=== PATIENT | male | born 1935 | race Caucasian/White ===

== ENCOUNTER → 2023-04-13 12:10 | Outpatient (REF) | payer MEDICARE, SELFPAY ==
[2023-04-13 13:34] LABS: Blood Urea Nitrogen 32 mg/dl (9-20)
== END ==
LOC: REG 12:10
PROVIDERS: ATTENDING PHYSICIAN Internal Medicine Gastroenterology; FAMILY PHYSICIAN Family Medicine
DX: K86.81 Exocrine pancreatic insufficiency (principal)
CPT/HCPCS: 36415; 82565; 84520

== ENCOUNTER → 2023-05-05 12:40 | Outpatient (REF) | payer MEDICARE, SELFPAY | LOC: RAD 12:40 | PROVIDERS: ATTENDING PHYSICIAN Internal Medicine Gastroenterology; FAMILY PHYSICIAN Family Medicine | DX: K86.81 Exocrine pancreatic insufficiency (principal) | CPT/HCPCS: 74160; Q9967 ==

== ENCOUNTER 2023-08-12 14:46 | Inpatient (IN) | payer MEDICARE, SELFPAY ==
[2023-08-12] VITALS (9 sets, daily range): BP systolic 96–124; BP diastolic 69–78; PULSE 103; O2SAT 96; BMI 22.4
--- NOTE | 2023-08-12 10:37 | ED.MUSCINJ ---
HPI-Injury
General
Chief Complaint: Fall
Source: patient
Exam Limitations: none
Time Seen by Provider: 08/12/23 10:20
Nursing documentation reviewed up to this point in time: agreed with
History of Present Illness-Injury
Is this injury a work related problem?: No
Is pt an associate of [facility]/[place]?: No
Initial Injury comments:
88-year-old male on Coumadin and has A-fib tripped today while walking fell struck his left hip on the ground no head strike, presents boarded and collared apparently has a laceration to his right forearm, mild pain in his left hip has been able to
ambulate since the fall, no preceding chest pain or shortness of breath
Past History
Past History
ED Past Medical History: Arrthythmia, CHF, CVA and NIDDM
ED Past Surgical History: Cardiac and Orthopedic
Social History
Tobacco: Non-smoker
Alcohol: None
Drug: None
Personal:
Living: with family
Employment: Retired
Family History
Family History: Hypertension
Review of Systems
Review of Systems
All Other Systems: Not applicable
Constitutional: Denies fever
EENT: Reports no symptoms
Respiratory: Reports no symptoms
Cardiac: Reports no symptoms
ABD/GI: Reports no symptoms
Musculoskeletal: Reports joint pain
Neurological: Reports no symptoms
Phy Exam
Physical Exam
Physical Exam:
Physical Exam
General: no apparent distress, not acutely ill
Neck: No tongue bite mild paraspinal tenderness
Heart: Irregular
Lungs: no acute respiratory distress. clear bilaterally
Abdomen: Nontender
Neuro: alert and oriented. no focal neurological deficits
Skin: no rash
Psychiatric: cooperative
Extremities: Mild pain with range of motion of left hip, right forearm--2 cm skin tear on the volar surface
Injury Course
Orders/Labs/Results
Orders:
Orders
08/12/23 10:26
Cardiac Monitoring- Treatment ONCE
Interrogate Pacemaker- Treatment ONCE
Hip, Left 2-3 Views [CR Hip - LT w/wo Pel 2-3 Vw*] Urgent
Comment:
Reason For Exam: fall
Include a pelvis x-ray?: Yes
08/12/23 10:27
Electrocardiogram (*1) Urgent
Reason for Study: Other
Other Reason for Exam: trauma
CT Cervical Spine W/o Iv Contr Urgent
Comment:
Reason For Exam: fall
CT Head W/o Iv Contrast Urgent
Comment:
Reason For Exam: fall
EKG- Treatment ONCE
08/12/23 10:38
Forearm, Right 2 View [CR Forearm - Right 2 View] Urgent
Comment:
Reason For Exam: fa;;
08/12/23 10:40
Type+Screen Urgent
Complete Blood Count/With Diff Urgent
Comprehensive Metabolic Panel Urgent
PT/INR [Prothrombin Time] Urgent
08/12/23 11:49
Physical Therapy Consult [Pt Eval And Treat] Urgent
Activity Level: Out of Bed-Early Mobility
08/12/23 12:25
Case Management Consult ONCE
Case Management Consult: Discharge Planning
08/12/23 12:27
Morphine Sulfate 4 mg IV NOW STA
08/12/23 13:08
Occupational Therapy Consult [Ot Eval And Treat] Urgent
Abnormal Lab Results
08/12/23
10:40
RBC 4.12 L 10^6/uL
(4.70-6.10)
Hgb 12.2 L g/dL
(13.0-18.0)
Hct 38.4 L %
(39.0-52.0)
MCHC 31.8 L g/dL
(33.0-37.0)
RDW 16.3 H %
(11.5-14.5)
MPV 10.9 H fL
(7.4-10.4)
Abs Immat Gran (auto) 0.1 H 10^3/uL
(0-0.05)
Absolute Neuts (auto) 6.6 H 10^3/uL
(1.4-6.5)
Absolute Lymphs (auto) 1.0 L 10^3/uL
(1.2-3.4)
Immature Gran % 1.3 H %
(0-0.5)
Neutrophils % 80.5 H %
(42.2-75.2)
Lymphocytes % 11.7 L %
(20.5-51.1)
PT 34.3 H Sec
(11.4-14.6)
BUN 34 H mg/dl
(9-20)
Glucose 202 H mg/dl
(70-99)
ALT 66 H U/L
(0-50)
08/12/23 10:40
08/12/23 10:40
MDM/Problems Addressed
Differential Diagnosis Includes:
Slip and fall syncope hip fracture hip contusion pelvic fracture soft tissue injury to the right forearm
MDM/Problems Addressed:
Fall
Chronic conditions affecting care: Arrhythmia
Acute Exacerbation and/or Progression of Chronic Illness: Arrhythmia
*Radiology
Radiology exam reviewed: radiology read reviewed
*Pulse Oximetry
Patient hypoxic: no
*EKG
Interpreted by ED Provider?: Yes
Interpretation: abnormal
Comparison EKG: changes noted
Heart Rate: 110
Rate: tachycardiac
Rhythm: a-fib
Ischemia: non-specific ST changes
*Automation Sales Manager Interpretation
Rate: tachycardiac
Interpretation: abnormal
Heart Rate: 110
Rhythm: a-fib
*Critical Care Note
Total Time (30-74mins, 75-104mins- exclusive of procedures): 5
Update Note
Update Note:
dw Metronic
NSVT 2 weeks ago-brief
CT reports noted x-rays noted prosthesis appears intact looks like it was slightly displaced inferior rami fracture on the left
X-ray report confirms pelvic fracture, reviewed with PT they recommended senior living facility message sent to employment case manager
1:10 PM discussed with employment case manager patient may be a candidate for acute rehab but needs an OT consult
Reviewed with employment case manager recommend admission to the hospital
ED Attending Note
-
Portions of this chart may have been created with voice recognition software.� Occasional wrong word or��sound alike� substitutions may have occurred due to the inherent limitations of voice recognition software.
Discharge Plan
Departure
Patient Disposition: Admit
Date of Disposition: 08/12/23
Time of Disposition: 14:13
Admit to: Telemetry
Presentation/result/management discussed w/ accepting MD/DO: Hospitalist
Patient with high blood pressure during this ER visit?: No
Condition: Fair
Discharge Problem:
Closed pelvic fracture
Prescriptions:
No Action
omeprazole 20 MG capsule,delayed release(DR/EC)
20 mg PO DAILY
atorvastatin 10 MG tablet
10 mg PO QPM
tamsulosin 0.4 MG capsule
0.4 mg PO QPM
oxybutynin chloride 5 MG tablet
10 mg PO QPM
finasteride 5 MG tablet
5 mg PO DAILY
multivitamin Tablet
1 tab PO DAILY
carvedilol 6.25 mg tablet
3.125 mg PO BID
warfarin 5 mg tablet
5 mg PO QPM
acetaminophen 325 mg Tablet
650 mg PO Q4HPRN PRN (Reason: mild pain/LANZA/temp> 100.4F) Qty: 0 0RF
furosemide [Lasix] 20 mg Tablet
20 mg PO Q48H
aspirin 81 mg Tablet,Delayed Release (Dr/Ec)
81 mg PO DAILY Qty: 0 0RF
trazodone 50 mg Tablet
50 mg PO HS
lidocaine 4 % adhesive patch,medicated
1 patch topical DAILYPRN PRN (Reason: left back shoulder)
lorazepam 0.5 mg tablet
0.5 mg PO BID@1700,2200
Patient Comments:
12/24/2022: [facility]
loperamide 2 mg Tablet
2 mg PO Q4HPRN PRN (Reason: diarrhea)
metformin 500 mg Tablet Extended Release 24 Hr
500 mg PO BID@0800,1700
cholestyramine (with sugar) [Questran] 4 gram powder in packet
4 g PO BID PRN (Reason: diarrhea) Qty: 20 0RF
Referrals:
Arsenio Smith MD [Family Provider] -
Interventions
Interventions:
*Risk Screen - Suicide Last Done: 08/12/23 10:17
*General Assessment Last Done: 08/12/23 10:17
*Neglect/Abuse Screening Last Done: 08/12/23 10:17
ED- Fall Risk Assessment Last Done: 08/12/23 10:34
*ED COVID-19 Vaccine History Last Done: 08/12/23 10:17
ED-Musculoskeletal Assessment Last Done: 08/12/23 10:34
ED- Neurological Assessment Last Done: 08/12/23 10:34
ED-Skin Assessment Last Done: 08/12/23 10:34
Discharge Date and Time
Print Language: BHUTANESE
[2023-08-12 10:53] LABS: % Basophils 0.2 % (0-2); % Immature Granulocytes 1.3 % (0-0.5); % Lymphocytes 11.7 % (20.5-51.1); % Monocytes 5.3 % (1.7-9.3); % Neutrophils 80.5 % (42.2-75.2); Absolute Eosinophils 0.1 10^3/uL (0-0.7); Absolute Immature Granulocytes 0.1 10^3/uL (0-0.05); Absolute Monocytes 0.4 10^3/uL (0.1-0.6); Absolute Neutrophils 6.6 10^3/uL (1.4-6.5); Hematocrit 38.4 % (39.0-52.0); Hemoglobin 12.2 g/dL (13.0-18.0); Mean Corp Hgb Conc. 31.8 g/dL (33.0-37.0); Mean Corpuscular Hgb 29.6 pg (27.0-31.0); Mean Corpuscular Volume 93.2 fL (80.0-94.0); Mean Platelet Volume 10.9 fL (7.4-10.4); Nucleated Red Blood Cells % 0 % (-); Platelet Count 146 10^3/uL (130-400); Red Blood Cell Count 4.12 10^6/uL (4.70-6.10); Red Cell Dist. Width 16.3 % (11.5-14.5); White Blood Cell Count 8.2 10^3/uL (4.8-10.8)
[2023-08-12 11:01] LABS: PT 34.3 Sec (11.4-14.6)
[2023-08-12 11:11] LABS: ALT (SGPT) 66 U/L (0-50); AST (SGOT) 53 U/L (17-59); Albumin 3.7 g/dl (3.5-5.0); Alkaline Phosphatase 78 U/L (38-126); Blood Urea Nitrogen 34 mg/dl (9-20); Calcium 9.2 mg/dl (8.4-10.2); Carbon Dioxide 28 mmol/L (22-30); Chloride 103 mmol/L (98-107); Estimated Creatinine Clearance 61 ml/min; Glucose 202 mg/dl (70-99); Potassium 4.5 mmol/L (3.5-5.1); Sodium 137 mmol/L (135-145); Total Bilirubin 0.7 mg/dl (0.2-1.3); Total Protein 6.3 g/dl (6.3-8.2); eGFR > 60.00
[2023-08-12] MEDS: MORPHINE SULFATE 4 MG IV (12:33)
--- NOTE | 2023-08-12 13:24 | CM ---
Addendum entered by Tyrell Harrison 08/12/23 15:03:
CM received a phone call from [facility] coordinator Kristen [phone] and she stated they will be able to admit the pt as early as Tuesday and she will follow up with assigned CM on Tuesday.
Addendum entered by Tyrell Harrison 08/12/23 14:49:
Both [facility] and [facility] denied a referral and recommended pt is admitted to inpatient level of care for syncope work out and abnormal labs.
Per OT pt even cannot stand on his feet due to pain.
Per MD pt will be admitted for inpatient level of care.
Both pt and his family are aware and they requested [facility] on [facility]. art director Dipak [phone].
Original Note:
CM following re: discharge planning.
CM consulted to assist the pt with SNF placement.
Reviewed pt's chart, met with pt. pt's spouse Fay and son Bertin present at bedside.
Pt is an 88 year old male, arrived to ER after he fell at home, has a laceration to his right forearm, mild pain in his left hip has been able to ambulate since the fall. PT evaluation noted - SNF level of care recommended.
Pt reports he lives with spouse [facility], 3 steps to enter, has 3 supportive children, son Bertin lives locally and can help as needed. Pt reports he ambulates with a walker, currently with [facility]. No SNF history.
CM explained to the pt and his family Medicare criteria for SNF level of care, pt dis not has inpatient admission in the past 30 days. private paid SNF as an options has been discussed with pt and his family, pt has no financial resources to afford.
Pt's spouse went to tears stating she will not be able to care for pt at home especially now when he cannot walk. Emotional support offered and provided.
Acute level of care as an option has been discussed with the pt and his family, they expressed their agreement and expressed no preferences.
A referral made to [facility] in [place] and [facility]. CM discussed pt's case in details with [facility] office coordinator Eri and [facility] acute rehab Ana Lilia. Awaiting for determination.
Both pt and his family are aware that there is a little possibility that pt can be accepted for an acute rehab level of care. Plan B as a realistic option discussed with the pt and his family - home with [facility] for RN, PT, OT and home health aid
services. Both pt and his family expressed their understanding of the challenging process in navigating the next level of care.
D/C plan: Plan A: acute rehab at [facility] ot [facility]. Plan B: home with [facility] and family support.
CM will follow to assist pt with navigating a safe discharge plan.
--- NOTE | 2023-08-12 14:26 | HPS.HSE ---
Family Physician
-
Family Physician: Arsenio Smith
Chief Complaint
-
Fall and left groin pain, happened this morning at home
History of Present Illness
88 years old male who lives at home with his . Patient has ambulatory dysfunction uses a walker at home. He called his to help him and was complaining of left groin pain after falling. Visiting nurse was seeing him same time and she
called the ambulance. In the emergency room, and imaging studies showed mildly displaced left inferior pubic ramus fracture. No loss of consciousness. No chest pain or palpitations.
Medical History
Past Medical History
Past Medical History: Reports Other (Right bundle branch block, chronic A-fib, hypertension, dilated cardiomyopathy, ambulatory dysfunction status post biventricular ICD., History of CVA, BPH, bipolar disorder, chronic right heel ulcer,
hyperlipidemia)
Past Surgical History: Reports Other (No recent major surgery)
Social History
Tobacco: Non-smoker
Alcohol: None
Drug: None
Personal:
Living: With Family
Employment: Retired
Family History
Family History: Other (Father had heart disease)
Allergies / Home Medications
Allergies reflects when Allergies were last updated in [employer].
Home Medications with original date entered in [employer]
Allergy/Medication List:
Allergies
Allergy/AdvReac Type Severity Reaction Status Date / Time
dog dander Allergy itchy Verified 08/12/23 10:33
eyes,
breathing
issues
horse dander Allergy itchy Verified 08/12/23 10:33
eyes,
breathing
issues
Home Medications
omeprazole 20 mg capsule,delayed release 20 mg PO DAILY Gastrointestinal issue 09/07/12
finasteride 5 mg tablet 5 mg PO QPM Urinary issue 12/04/20
oxybutynin chloride 5 mg tablet 10 mg PO QPM Urinary issue 12/04/20
warfarin 5 mg tablet 5 mg PO LOGANTUWEFRSA@1900 Blood clot prevention/tx 05/19/22
trazodone 50 mg tablet 50 mg PO HS Sleep 09/29/22
acetaminophen 650 mg tablet,extended release (Tylenol Arthritis Pain) 1,300 mg PO DAILY 08/12/23
atorvastatin 10 mg tablet (Lipitor) 10 mg PO QPM 08/12/23
carvedilol 3.125 mg tablet (Coreg) 3.125 mg PO BID 08/12/23
furosemide 20 mg tablet (Lasix) 20 mg PO Q48H 08/12/23
loperamide 2 mg tablet 2 mg PO Q4HPRN PRN DIARRHEA 08/12/23
lorazepam 1 mg tablet 1 mg PO BID 08/12/23
tamsulosin 0.4 mg capsule (Flomax) 0.4 mg PO HS 08/12/23
therapeutic multivitamin 1 tab PO DAILY 08/12/23
warfarin 7.5 mg tablet 7.5 mg PO TH@1900 08/12/23
Review of Systems
-
History Source: Patient
A 12 point ROS was completed and negative except as noted: Yes
Constitutional: Denies Fever or Chills
EENT: Denies Sore Throat
Respiratory: Denies Cough or Trouble Breathing
Cardiac: Denies Chest Pain
Abdomen/GI: Denies Abdominal Pain
: Denies Dysuria
Musculoskeletal: Reports Other (left groin pain )
Skin: Denies Itching
Neurological: Denies Numbness
Endocrine: Denies Temp Intolerance
Psych: Denies Panic Disorder
Physical Exam
Vital Signs
Vital Signs
Temp Pulse Resp BP Pulse Ox
97.8 F 96 22 115/77 95
08/12/23 10:17 08/12/23 13:45 08/12/23 13:45 08/12/23 13:41 08/12/23 12:00
Physical Exam
General: No Apparent Distress and Comfortable
HEENT: Moist mucous membranes and Atraumatic
Respiratory: Clear
Cardiac: S1/S2
GI: Soft and Non Tender
Rectal: No Maroon Stools
Genito-urinary: No costovertebral tender; No Valencia
Musculoskeletal: No Cyanosis
Skin: Warm and Dry
Neuro: AO x 3; No Slurred Speech, Facial Droop or Tremors
Psych: Calm and Intact Judgment/Insight
Laboratory Results
-
08/12/23 10:40
08/12/23 10:40
Laboratory Results
PT 34.3 Sec (11.4-14.6) H 08/12/23 10:40
INR 3.40 08/12/23 10:40
Total Bilirubin 0.7 mg/dl (0.2-1.3) 08/12/23 10:40
AST 53 U/L (17-59) 08/12/23 10:40
ALT 66 U/L (0-50) H 08/12/23 10:40
Alkaline Phosphatase 78 U/L (38-126) 08/12/23 10:40
Impression/Plan
-
88-year-old male had a fall and sustained mildly displaced left inferior pubic ramus fracture
# Mildly displaced left inferior pubic ramus fracture
No hypotension. No open wound.
No loss of consciousness or head trauma
Imaging studies showed no acute findings in the head or cervical area
Admit the patient to the hospital for pain control
Patient is unable to ambulate
Pain control with Tylenol and low-dose morphine
Will consult orthopedic, appreciate help
#Chronic atrial fibrillation
Uncontrolled, will continue with carvedilol and titrate the dose as needed
-Hold Coumadin due to high INR, repeat PT/INR in a.m.
#Peripheral artery disease
Status post 3 left toes amputation.
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 Jarrett in May 2022
#Type 2 diabetes
Patient would like regular diet
#History of dysphagia, currently on regular diet
Chronic HFrEF with biventricular ICD
Continue Lasix, Coreg
History of CVA
-Continue statin
-Continue Coumadin
Bipolar disorder
Mood is cooperative
-Continue Ativan, trazodone
BPH
-Continue finasteride, tamsulosin, oxybutynin
Gastroesophageal reflux disease
-Continue PPI
DVT prophylaxis�Coumadin
DNR/DNI, confirmed with patient and his
Total time spent to see the patient on the floor, examine the patient, review data and lab results, discuss treatment plan with patient, ER doctor, nursing staff around 75 minutes
[2023-08-12 16:50] LABS: Glucose - Point of Care 242 mg/dl (70-99)
[2023-08-12] MEDS: TYLENOL 1000 MG PO (18:28)
[2023-08-12] MEDS: PROSCAR 5 MG PO (18:28)
[2023-08-12] MEDS: DITROPAN 10 MG PO (18:28)
[2023-08-12] MEDS: LIPITOR 10 MG PO (18:28)
[2023-08-12] MEDS: COUMADIN 5 MG PO (18:28)
[2023-08-12] MEDS: ATIVAN 1 MG PO (20:13)
[2023-08-12] MEDS: COREG 3.125 MG PO (20:13)
[2023-08-12] MEDS: FLOMAX 0.4 MG PO (21:17)
[2023-08-12] MEDS: DESYREL 50 MG PO (21:17)
[2023-08-12] MEDS: MORPHINE SULFATE 2 MG IV (21:18)
[2023-08-12] MEDS: TYLENOL PO (22:35)
[2023-08-13] VITALS (7 sets, daily range): BP systolic 106–134; BP diastolic 68–88; PULSE 61; O2SAT 95
[2023-08-13] MEDS: COREG 3.125 MG PO ×2 (07:52→20:43)
[2023-08-13] MEDS: ATIVAN 1 MG PO ×2 (07:53→20:44)
[2023-08-13] MEDS: TYLENOL 1000 MG PO ×3 (07:53→22:40)
[2023-08-13] MEDS: LASIX 20 MG PO (07:53)
[2023-08-13 08:19] LABS: Glucose - Point of Care 167 mg/dl (70-99)
[2023-08-13 08:41] LABS: Hematocrit 38.7 % (39.0-52.0); Hemoglobin 12.6 g/dL (13.0-18.0); Mean Corp Hgb Conc. 32.6 g/dL (33.0-37.0); Mean Corpuscular Hgb 29.5 pg (27.0-31.0); Mean Corpuscular Volume 90.6 fL (80.0-94.0); Mean Platelet Volume 11.4 fL (7.4-10.4); Platelet Count 129 10^3/uL (130-400); Red Blood Cell Count 4.27 10^6/uL (4.70-6.10); Red Cell Dist. Width 16.3 % (11.5-14.5)
[2023-08-13 08:46] LABS: INR 3.57; PT 35.7 Sec (11.4-14.6)
--- NOTE | 2023-08-13 09:00 | CON.ORTHO ---
Consultation
-
Date/Time Consultation Requested: 08/12/23
Date/Time Consultation Performed: 08/13/23 @8:00am
Requesting Provider: unknown
Performing Provider: Meena Cervantes PA-C for Emi Dickinson DO
Reason for Consultation: pelvic fracture
Consultation - Orthopedics
History
HPI: 88yo male admitted to [facility]. He reports that he had a fall on 08/12/23. He began to have pain in his left groin. A visiting nurse was at his house and call EMS. He was brought to the ER for further evaluation. Xrays were performed
and reveal a left inferior pubic ramus fracture. Currently, he is resting comfortably in bed. He has little pain when he is not moving. He has pain in the left groin with any movement of the left leg. He normally ambulates with a walker at home.
PAST MEDICAL HISTORY: Atrial fibrillation on coumadin, history of CVA, diabetes, BPH, chronic right heel ulcer, HLD
PAST SURGICAL HISTORY: mitral valve repair, left hip hemiarthroplasty performed about 2-3 years ago at [facility]
SOCIAL HISTORY: denies tobacco, alcohol. ambulates with a walker. lives at home with
FAMILY HISTORY: Noncontributory
REVIEW OF SYSTEMS: 12 point review of systems obtained and negative except those mentioned in the HPI
Allergies / Home Medications
Allergy/AdvReac Type Severity Reaction Status Date / Time
dog dander Allergy itchy Verified 08/12/23 10:33
eyes,
breathing
issues
horse dander Allergy itchy Verified 08/12/23 10:33
eyes,
breathing
issues
�Medication �Instructions �Recorded
omeprazole 20 mg capsule,delayed 20 mg PO DAILY Gastrointestinal 09/07/12
release issue
finasteride 5 mg tablet 5 mg PO QPM Urinary issue 12/04/20
oxybutynin chloride 5 mg tablet 10 mg PO QPM Urinary issue 12/04/20
warfarin 5 mg tablet 5 mg PO [facility]1900 Blood 05/19/22
clot prevention/tx
trazodone 50 mg tablet 50 mg PO HS Sleep 09/29/22
acetaminophen 650 mg 1,300 mg PO DAILY 08/12/23
tablet,extended release (Tylenol
Arthritis Pain)
atorvastatin 10 mg tablet (Lipitor) 10 mg PO QPM 08/12/23
carvedilol 3.125 mg tablet (Coreg) 3.125 mg PO BID 08/12/23
furosemide 20 mg tablet (Lasix) 20 mg PO Q48H 08/12/23
loperamide 2 mg tablet 2 mg PO Q4HPRN PRN DIARRHEA 08/12/23
lorazepam 1 mg tablet 1 mg PO BID 08/12/23
tamsulosin 0.4 mg capsule (Flomax) 0.4 mg PO HS 08/12/23
therapeutic multivitamin 1 tab PO DAILY 08/12/23
warfarin 7.5 mg tablet 7.5 mg PO TH@1900 08/12/23
Vital Signs / Lab Results
Temp Pulse Resp BP Pulse Ox
98.1 F 109 16 120/75 93
08/13/23 07:02 08/13/23 07:53 08/13/23 07:02 08/13/23 07:53 08/13/23 07:02
08/13/23 07:02
08/12/23 10:40
RADIOGRAPHIC FINDNGS:
Xrays pelvis and left hip reveal a minimally displaced left inferior pubic rami fracture. Left hip hemiarthroplasty appears intact
PHYSICAL EXAM:
General: AAOx3, no acute distress
HEENT: NCAT, sclera anicteric, normal hearing
Heart: No JVD
Lungs: normal work of breathing on room air
MSK: Directed exam of left lower extremity reveals a well healed surgical incision. No erythema. +TTP over left groin, nontender over lateral hip. ROM of hip with discomfort in groin. Calf soft and nontender. NVI distally
Assessment / Plan
ASSESSMENT: 88yo male with left inferior pubic rami fracture following a fall
PLAN: Unfortunately, Mr. Lemus sustained a left inferior pubic rami fracture from his fall yesterday. This is amenable to nonoperative treatment. He may be weight bearing as tolerated with a walker. Recommend PT/OT evaluation. Continue with pain
management as needed. Follow up outpatient in 4 weeks for repeat xrays. Orthopedics will sign off at this time. Please reach out with any questions or concerns.
--- NOTE | 2023-08-13 09:15 | W.PN.HOSP.TC ---
Today's Communication/Plan
-
DC planning
Assessment / Plan
Assessment / Plan
Physical Exam
General: No Apparent Distress and Comfortable
HEENT: Moist mucous membranes and Atraumatic
Respiratory: Clear
Cardiac: S1/S2
GI: Soft and Non Tender
Rectal: No Maroon Stools
Genito-urinary: No costovertebral tender; No Valencia
Musculoskeletal: No Cyanosis
Skin: Warm and Dry
Neuro: AO x 3; No Slurred Speech, Facial Droop or Tremors
Psych: Calm and Intact Judgment/Insight
88-year-old male had a fall and sustained mildly displaced left inferior pubic ramus fracture
# Mildly displaced left inferior pubic ramus fracture
No hypotension. No open wound. Stable hemoglobin.
No loss of consciousness or head trauma
Imaging studies showed no acute findings in the head or cervical area
Admit the patient to the hospital for pain control
Patient is unable to ambulate due to pain
Pain control with Tylenol and low-dose morphine
Seen by orthopedic, appreciate help, recommend nonoperative treatment, weight bearing status as tolerated.
#Chronic atrial fibrillation
HR around 100 with no symptoms. continue with carvedilol and titrate the dose as needed
-Hold Coumadin due to high INR, repeat PT/INR in a.m.
#Peripheral artery disease
Status post 3 left toes amputation.
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 Jarrett in May 2022
#Type 2 diabetes
Patient would like regular diet
#History of dysphagia, currently on regular diet
Chronic HFrEF with biventricular ICD
Continue Lasix, Coreg
History of CVA
-Continue statin
-Continue Coumadin
Bipolar disorder
Mood is cooperative
-Continue Ativan, trazodone
BPH
-Continue finasteride, tamsulosin, oxybutynin
Gastroesophageal reflux disease
-Continue PPI
DVT prophylaxis�Coumadin
DNR/DNI, confirmed with patient and his
Total time spent to see the patient on the floor, examine the patient, review data and lab results, discuss treatment plan with patient, orthopedic doctor, nursing staff around 55 minutes
Anticipated Discharge: Within 24 hours
Subjective/Interval History
-
Date of Service: August 13, 2023
Pain in left groin and left shoulder
Objective Data
-
Labs:
Laboratory Results
08/13/23
07:02
WBC 9.0
Hgb 12.6 L
Hct 38.7 L
Plt Count 129 L
PT 35.7 H
INR 3.57
Vital Signs:
Vital Signs
Temp Pulse Resp BP Pulse Ox
98.1 F 109 16 120/75 93
08/13/23 07:02 08/13/23 07:53 08/13/23 07:02 08/13/23 07:53 08/13/23 07:02
I&O
08/12/23 08/13/23 08/14/23
06:59 06:59 06:59
Intake Total 960 / 960
Output Total 250 / 250
Balance 710 / 710
[2023-08-13] MEDS: MORPHINE SULFATE 2 MG IV ×2 (11:33→16:00)
[2023-08-13] MEDS: DITROPAN 10 MG PO (16:51)
[2023-08-13] MEDS: PROSCAR 5 MG PO (16:51)
[2023-08-13] MEDS: LIPITOR 10 MG PO (16:51)
[2023-08-13] MEDS: FLOMAX 0.4 MG PO (22:40)
[2023-08-13] MEDS: DESYREL 50 MG PO (22:40)
--- NOTE | 2023-08-14 03:52 | PTCARENOTE ---
Pt has had no urine output during shift. Bladder scan amount is 418 mL. This RN assisted pt in attempting to use the urinal but pt was unsuccessful. [employer] REPRESENTATIVE Araceli Menchaca notified, order for bladder scan and straight cath ordered per
protocol. Pt tolerated 1x straight catheterization with 400 mL of devendra urine voided.
[2023-08-14 06:00] VITALS: BMI 21.3
--- NOTE | 2023-08-14 06:25 | PTCARENOTE ---
Pt had one episode of a moderate amount of brown emesis this AM. Pt reports still feeling nauseous but denies the need for anti-nausea medication. Pt's linens changed.
[2023-08-14 07:01] LABS: INR 3.66; PT 36.4 Sec (11.4-14.6)
[2023-08-14 07:05] VITALS: BP 118/82
--- NOTE | 2023-08-14 07:45 | W.PN.UPDATE ---
Update Note
Progress Note Update
Patient seen and examined. Agree with orthopedic PA note. Patient was awake and alert. Pleasantly conversational.
Left lower extremity: Pain with hip flexion and internal rotation. No erythema or ecchymosis. Dressing on third toe Clean/dry/intact. Patient has bruising on bilateral knees but no tenderness to palpation and complete range of motion of the knee.
No effusion.
X-rays performed at [facility] on 08/12/23 AP of the pelvis and AP and lateral of left hip shows a minimally displaced inferior pubic ramus fracture. Left hip hemiarthroplasty is intact. No evidence of periprosthetic fracture. No evidence
of acetabular Fracture.
Impression: Left pubic ramus fracture
Plan: Patient may weight-bear to tolerance with his walker. Follow-up in the office as an outpatient in 4 weeks. Physical therapy and Occupational Therapy for gait training. If any further orthopedic assistance is needed regarding this issue
please contact us.
--- NOTE | 2023-08-14 09:09 | W.PN.HOSP.TC ---
Today's Communication/Plan
-
repeat blood work
Hold Coumadin
Assessment / Plan
Assessment / Plan
Physical Exam
General: No Apparent Distress and Comfortable
HEENT: Moist mucous membranes and Atraumatic
Respiratory: Clear
Cardiac: S1/S2
GI: Soft and Non Tender
Rectal: No Maroon Stools
Genito-urinary: No costovertebral tender; No Valencia
Musculoskeletal: No Cyanosis
Skin: Warm and Dry
Neuro: AO x 3; No Slurred Speech, Facial Droop or Tremors. Stiffness noted
Psych: Calm and Intact Judgment/Insight
88-year-old male had a fall and sustained mildly displaced left inferior pubic ramus fracture
# Mildly displaced left inferior pubic ramus fracture
No hypotension. No open wound. Stable hemoglobin.
No loss of consciousness or head trauma
Imaging studies showed no acute findings in the head or cervical area
Admit the patient to the hospital for pain control
Patient is unable to ambulate due to pain
Pain control with Tylenol and low-dose morphine
Seen by orthopedic, appreciate help, recommend nonoperative treatment, weight bearing status as tolerated.
#Chronic atrial fibrillation
HR around 100 with no symptoms. continue with carvedilol and titrate the dose as needed
-Hold Coumadin due to high INR, repeat PT/INR in a.m.
#Peripheral artery disease
Status post 3 left toes amputation.
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 Jarrett in May 2022
#Type 2 diabetes
Patient would like regular diet
#History of dysphagia, currently on regular diet
Chronic HFrEF with biventricular ICD
Continue Lasix, Coreg
History of CVA
-Continue statin
-Continue Coumadin
Bipolar disorder
Mood is cooperative
-Continue Ativan, trazodone
BPH
-Continue finasteride, tamsulosin, oxybutynin
Gastroesophageal reflux disease
-Continue PPI
DVT prophylaxis�Coumadin
DNR/DNI, confirmed with patient and his
Total time spent to see the patient on the floor, examine the patient, review data and lab results, discuss treatment plan with patient, orthopedic doctor, nursing staff around 55 minutes
Anticipated Discharge: Within 24 hours
Subjective/Interval History
-
Date of Service: August 14, 2023
Same pain in right groin
No chest pain
Objective Data
-
Labs:
Laboratory Results
08/14/23
06:33
PT 36.4 H
INR 3.66
Vital Signs:
Vital Signs
Temp Pulse Resp BP Pulse Ox
98.3 F 116 16 118/82 89
08/14/23 07:05 08/14/23 07:05 08/14/23 07:05 08/14/23 07:05 08/14/23 07:05
I&O
08/13/23 08/14/23 08/15/23
06:59 06:59 06:59
Intake Total 960 / 960 870 / 870
Output Total 250 / 250 700 / 700
Balance 710 / 710 170 / 170
[2023-08-14] MEDS: ATIVAN PO (11:01)
[2023-08-14] MEDS: COREG 3.125 MG PO ×2 (11:01→19:49)
[2023-08-14] MEDS: TYLENOL 1000 MG PO ×3 (11:02→21:42)
--- NOTE | 2023-08-14 11:45 | PTOTSP ---
Speech Therapy
Presentation: Patient appeared to be a little confused and drowsy but able to follow commands and participate. Patient's speech and language appeared to be WNL.
Per 05/27/22 VSE, patient demonstrated silent trace aspiration of thin liquids in which STRAW BOSS recommended regular consistency solids and nectar thick liquids. See 05/27/22 VSE note for details.
Swallowing Function: Patient was observed with several single presentations of ice chips in which patient demonstrated coughing with each trial. Patient has a history of dysphagia (see 05/27/22 VSE note) in which silent aspiration was noted. RN
requested PO medications trialed as he is unable to tolerate the medications via IV due to increased confusion, STRAW BOSS and RN trialed crushed medications in puree in which patient demonstrated intermittent throat clearing and coughing.
Given the clinical presentation, history of aspiration, and medical hx, recommend NPO at this time with VSE to further assessed swallowing function and r/o aspiration.
Recommendations:
1) NPO at this time
2) VSE when appropriate
3) Oral care
4) Aspiration precautions
Plan: STRAW BOSS will continue to follow; pending hospitalization.
[2023-08-14 12:07] VITALS: BP 110/75; PULSE 110; O2SAT 93
[2023-08-14 12:09] VITALS: BP 110/75; PULSE 110; O2SAT 93
[2023-08-14 15:11] VITALS: BP 103/73
--- NOTE | 2023-08-14 16:26 | PTCARENOTE ---
Pt drowsy throughout the day - wakes to verbal stimuli and is oriented. No pain at rest but severe L groin pain w/ movement. Unable to tolerate working w/ PT. Seen by speech therapy d/t swallowing issues last night - still coughing w/ intake.
Plan for video swallow in morning. Can tolerate taking pills crushed in applesauce.
[2023-08-14] MEDS: DITROPAN 10 MG PO (17:34)
[2023-08-14] MEDS: PROSCAR 5 MG PO (17:35)
[2023-08-14] MEDS: D5/0.45%NACL 1000 IV (17:54)
[2023-08-14] MEDS: ATIVAN 1 MG PO (19:49)
[2023-08-14] MEDS: FLOMAX 0.4 MG PO (21:41)
[2023-08-14] MEDS: ROXICODONE 5 MG PO (21:41)
[2023-08-14] MEDS: DESYREL 50 MG PO ×2 (21:41)
[2023-08-14 22:53] VITALS: BP 115/61
[2023-08-15] MEDS: D5/0.45%NACL 1000 IV (05:43)
[2023-08-15 07:21] VITALS: BP 104/68
[2023-08-15 07:32] LABS: Hematocrit 34.8 % (39.0-52.0); Hemoglobin 11.4 g/dL (13.0-18.0); Mean Corp Hgb Conc. 32.8 g/dL (33.0-37.0); Mean Corpuscular Hgb 29.6 pg (27.0-31.0); Mean Corpuscular Volume 90.4 fL (80.0-94.0); Mean Platelet Volume 12.2 fL (7.4-10.4); Platelet Count 136 10^3/uL (130-400); Red Blood Cell Count 3.85 10^6/uL (4.70-6.10); Red Cell Dist. Width 16.3 % (11.5-14.5)
[2023-08-15 08:01] LABS: INR 2.93; PT 30.5 Sec (11.4-14.6)
[2023-08-15] MEDS: COREG 3.125 MG PO (08:12)
[2023-08-15] MEDS: LASIX 20 MG PO (08:12)
[2023-08-15] MEDS: ATIVAN 1 MG PO ×2 (08:12→21:33)
[2023-08-15] MEDS: TYLENOL 1000 MG PO ×3 (08:12→21:30)
[2023-08-15 08:32] LABS: Blood Urea Nitrogen 57 mg/dl (9-20); Calcium 8.7 mg/dl (8.4-10.2); Carbon Dioxide 27 mmol/L (22-30); Chloride 102 mmol/L (98-107); Estimated Creatinine Clearance 53 ml/min; Glucose 187 mg/dl (70-99); Magnesium 1.7 mg/dl (1.6-2.3); Potassium 4.1 mmol/L (3.5-5.1); Sodium 137 mmol/L (135-145); eGFR > 60.00
--- NOTE | 2023-08-15 09:10 | W.PN.HOSP.TC ---
Today's Communication/Plan
-
Discharge to short-term rehab tomorrow
Assessment / Plan
Assessment / Plan
88-year-old male had a fall and sustained mildly displaced left inferior pubic ramus fracture
# Mildly displaced left inferior pubic ramus fracture
No hypotension. No open wound. Stable hemoglobin.
No loss of consciousness or head trauma
Imaging studies showed no acute findings in the head or cervical area
Seen by orthopedic, appreciate help, recommend nonoperative treatment, weight bearing status as tolerated.
Discharge to short-term rehab tomorrow
#Chronic atrial fibrillation
Borderline tachycardic, increase Coreg to 6.25 mg twice a day
Resume Coumadin, INR therapeutic
#Peripheral artery disease
Status post 3 left toes amputation.
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 Jarrett in May 2022
#Type 2 diabetes
Patient would like regular diet
#History of dysphagia, currently on regular diet
VSE 08/14 shows aspiration
Discussed with patient's on 08/14, who understand the risks, and wishes to proceed with a regular diet and thin liquids
Chronic HFrEF with biventricular ICD
Continue Lasix, Coreg
History of CVA
-Continue statin
-Continue Coumadin
Bipolar disorder
Mood is cooperative
-Continue Ativan, trazodone
BPH
-Continue finasteride, tamsulosin, oxybutynin
Gastroesophageal reflux disease
-Continue PPI
DVT prophylaxis�Coumadin
DNR/DNI, confirmed with patient and his
Total time spent to see the patient on the floor, examine the patient, review data and lab results, discuss treatment plan with patient, orthopedic doctor, nursing staff around 50 minutes
Physical Exam
General: Appears chronically debilitated, no Apparent Distress and Comfortable
HEENT: Moist mucous membranes and Atraumatic
Respiratory: Clear
Cardiac: S1/S2
GI: Soft and Non Tender
Rectal: No Maroon Stools
Genito-urinary: No costovertebral tender; No Valencia
Musculoskeletal: No Cyanosis
Skin: Warm and Dry
Neuro: AO x 3; No Slurred Speech, Facial Droop or Tremors. Stiffness noted
Psych: Calm and Intact Judgment/Insight
Anticipated Discharge: Within 24 hours
Subjective/Interval History
-
Date of Service: August 15, 2023
Patient was found to be silently aspirating on his video swallow study. No fever, no vomiting.
Objective Data
-
Labs:
Laboratory Results
08/15/23
05:54
WBC 11.0 H
Hgb 11.4 L
Hct 34.8 L
Plt Count 136
PT 30.5 H
INR 2.93
Sodium 137
Potassium 4.1
Chloride 102
Carbon Dioxide 27
BUN 57 H
Creatinine 1.1
Glucose 187 H
Calcium 8.7
Vital Signs:
Vital Signs
Temp Pulse Resp BP Pulse Ox
97.9 F 101 21 104/68 98
08/15/23 07:21 08/15/23 07:21 08/15/23 07:21 08/15/23 07:21 08/15/23 07:21
I&O
08/14/23 08/15/23 08/16/23
06:59 06:59 06:59
Intake Total 870 / 870
Output Total 700 / 700 300 / 300
Balance 170 / 170 -300 / -300
[2023-08-15] MEDS: ROXICODONE 5 MG PO (10:07)
[2023-08-15 10:57] VITALS: BP 110/77; PULSE 75; O2SAT 95
[2023-08-15 11:00] VITALS: BP 110/77; PULSE 75; O2SAT 95
--- NOTE | 2023-08-15 12:18 | PTOTSP ---
Video Swallow Study
Summary: Patient presents with mild oral stage dysphagia and at least moderate-severe pharyngeal dysphagia with silent aspiration of multiple consistencies (i.e., thin, mildly thick, moderately thick). Patient does not currently have signs
concerning for aspiration complications such as PNA.
After education at time of this study, patient indicated he wanted to continue to eat/drink understanding risks/complications which can occur from aspiration - for which he may now be at an elevated risk given decreased mobility s/p fall with pelvic
fracture.
Recommend:
1. NPO until further goals of care discussion with physician
2. Consider Regular, Thin diet for comfort with patient understanding risks/complications of aspiration
3. Medications - as best tolerated
4. Strategies: upright to 90 degrees, multiple swallows, intermittent cough/swallow
5. Oral care 3x daily
6. Will follow up briefly pending patient goals.
--- NOTE | 2023-08-15 13:27 | CM ---
Addendum entered by Stella Keller 08/15/23 14:46:
[facility]
Report [phone]
fax [phone]
Original Note:
Chart reviewed and patient was accepted at [facility] acute rehab however patient and spouse feel it is too far away and have selected [facility] [phone] and [facility] have received a referral and have accepted patient.
Plan; Skilled placement at [facility]
[2023-08-15 15:33] VITALS: BP 111/74
[2023-08-15] MEDS: PROSCAR 5 MG PO (16:54)
[2023-08-15] MEDS: COUMADIN 5 MG PO (16:54)
[2023-08-15] MEDS: DITROPAN 10 MG PO (16:55)
[2023-08-15] MEDS: D5/0.45%NACL IV ×2 (18:15→23:08)
[2023-08-15] MEDS: COREG 6.25 MG PO (21:31)
[2023-08-15] MEDS: FLOMAX 0.4 MG PO (21:31)
[2023-08-15 22:57] VITALS: BP 93/66
[2023-08-16] MEDS: DESYREL 50 MG PO ×2 (04:00→22:33)
[2023-08-16 06:00] VITALS: BMI 21.4
[2023-08-16 07:12] LABS: Hematocrit 33.7 % (39.0-52.0); Mean Corp Hgb Conc. 32.6 g/dL (33.0-37.0); Mean Corpuscular Hgb 29.7 pg (27.0-31.0); Mean Corpuscular Volume 91.1 fL (80.0-94.0); Mean Platelet Volume 11.6 fL (7.4-10.4); Platelet Count 129 10^3/uL (130-400); Red Cell Dist. Width 16.3 % (11.5-14.5); White Blood Cell Count 9.2 10^3/uL (4.8-10.8)
[2023-08-16 07:28] LABS: INR 4.63; PT 43.9 Sec (11.4-14.6)
[2023-08-16 07:38] VITALS: BP 111/72
[2023-08-16 08:05] LABS: Blood Urea Nitrogen 50 mg/dl (9-20); Calcium 8.8 mg/dl (8.4-10.2); Carbon Dioxide 26 mmol/L (22-30); Chloride 104 mmol/L (98-107); Estimated Creatinine Clearance 58 ml/min; Glucose 165 mg/dl (70-99); Magnesium 1.9 mg/dl (1.6-2.3); Potassium 4.1 mmol/L (3.5-5.1); Sodium 136 mmol/L (135-145); eGFR > 60.00
[2023-08-16] MEDS: ATIVAN 1 MG PO ×2 (08:26→20:16)
[2023-08-16] MEDS: COREG 6.25 MG PO (08:26)
[2023-08-16] MEDS: TYLENOL 1000 MG PO ×3 (08:26→22:33)
--- NOTE | 2023-08-16 09:14 | W.PN.HOSP.TC ---
Today's Communication/Plan
-
Discharge to nursing facility for hospice tomorrow
Assessment / Plan
Assessment / Plan
88-year-old male had a fall and sustained mildly displaced left inferior pubic ramus fracture
#Dysphagia, currently on regular diet
VSE 08/14 shows aspiration
Discussed with patient's on 08/14, who understands the risks, and wishes to proceed with a regular diet and thin liquids
Nursing facility will not accept unless patient is signed onto hospice
Hospice nurse met with on 08/15, who agrees to hospice
Discharge to nursing facility with hospice tomorrow
# Mildly displaced left inferior pubic ramus fracture
No hypotension. No open wound. Stable hemoglobin.
No loss of consciousness or head trauma
Imaging studies showed no acute findings in the head or cervical area
Seen by orthopedic, appreciate help, recommend nonoperative treatment, weight bearing status as tolerated.
#Chronic atrial fibrillation
Borderline tachycardic, increase Coreg to 12.5 mg twice a day
Hold Coumadin, INR 4.6
#Peripheral artery disease
Status post 3 left toes amputation.
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 Jarrett in May 2022
#Type 2 diabetes
Patient would like regular diet
Chronic HFrEF with biventricular ICD
Continue Lasix, Coreg
History of CVA
-Continue statin
-Hold Coumadin INR 4.6
Bipolar disorder
Mood is cooperative
-Continue Ativan, trazodone
BPH
-Continue finasteride, tamsulosin, oxybutynin
Gastroesophageal reflux disease
-Continue PPI
DVT prophylaxis�Hold Coumadin INR 4.6
DNR/DNI, confirmed with patient and his
Total time spent to see the patient on the floor, examine the patient, review data and lab results, discuss treatment plan with patient, orthopedic doctor, nursing staff around 51 minutes
Physical Exam
General: Appears chronically debilitated, no Apparent Distress and Comfortable
HEENT: Moist mucous membranes and Atraumatic
Respiratory: Clear
Cardiac: S1/S2
GI: Soft and Non Tender
Rectal: No Maroon Stools
Genito-urinary: No costovertebral tender; No Valencia
Musculoskeletal: No Cyanosis
Skin: Warm and Dry
Neuro: AO x 3; No Slurred Speech, Facial Droop or Tremors. Stiffness noted
Psych: Calm and Intact Judgment/Insight
Anticipated Discharge: Within 24 hours
Subjective/Interval History
-
Date of Service: August 16, 2023
Patient is tolerating his diet. No fever, no vomiting.
Objective Data
-
Labs:
Laboratory Results
08/16/23
05:32
WBC 9.2
Hgb 11.0 L
Hct 33.7 L
Plt Count 129 L
PT 43.9 H
INR 4.63
Sodium 136
Potassium 4.1
Chloride 104
Carbon Dioxide 26
BUN 50 H
Creatinine 1.0
Glucose 165 H
Calcium 8.8
Vital Signs:
Vital Signs
Temp Pulse Resp BP Pulse Ox
98.4 F 94 19 111/72 95
08/16/23 07:38 08/16/23 08:26 08/16/23 07:38 08/16/23 08:26 08/16/23 07:38
I&O
08/15/23 08/16/23 08/17/23
06:59 06:59 06:59
Intake Total 720 / 720
Output Total 300 / 300 900 / 900
Balance -300 / -300 -180 / -180
[2023-08-16] MEDS: NSS 1000 IV ×2 (10:48→22:32)
--- NOTE | 2023-08-16 11:14 | CM ---
Addendum entered by Stella Keller 08/16/23 12:57:
Patient's spouse is agreeable to meeting with hospice, options reviewed and patient's spouse has agreed to [facility] for information.
Original Note:
Per patient's physician patient is not cleared for discharge today, patient has failed video swallow per notes and case worker reached out to the shelter facility to make sure that they can accept patient.
Plan; To follow up with [facility] [place] [phone] to see if they will still accept patient.
[2023-08-16 12:30] VITALS: BP 115/85
[2023-08-16 13:00] VITALS: BP 115/85; PULSE 98
--- NOTE | 2023-08-16 13:04 | HOSPNOTE ---
Spoke with spouse and explained hospice and the philosophy. The spouse is unclear of what to do. I spoke with daughter Rosa Maria [phone] I explained hospice and the philosophy and daughter explained that home is not an option and a facility is
needed. The daughter will call spouse and encourage placement at [facility] on hospice services. CM and attending updated.
[2023-08-16 15:23] VITALS: BP 110/66
[2023-08-16] MEDS: PROSCAR 5 MG PO (17:18)
[2023-08-16] MEDS: DITROPAN 10 MG PO (17:18)
[2023-08-16] MEDS: ROXICODONE 5 MG PO (18:07)
[2023-08-16 20:15] VITALS: BP 108/75
[2023-08-16] MEDS: COREG 12.5 MG PO (20:16)
[2023-08-16] MEDS: FLOMAX 0.4 MG PO (22:33)
[2023-08-16 22:53] VITALS: BP 110/73
[2023-08-17] MEDS: ROXICODONE 5 MG PO (04:44)
[2023-08-17 06:00] VITALS: BMI 21.6
[2023-08-17 07:22] VITALS: BP 134/64
[2023-08-17 07:37] LABS: Hematocrit 33.7 % (39.0-52.0); Hemoglobin 11.3 g/dL (13.0-18.0); Mean Corp Hgb Conc. 33.5 g/dL (33.0-37.0); Mean Corpuscular Hgb 29.6 pg (27.0-31.0); Mean Corpuscular Volume 88.2 fL (80.0-94.0); Mean Platelet Volume 11.5 fL (7.4-10.4); Platelet Count 159 10^3/uL (130-400); Red Blood Cell Count 3.82 10^6/uL (4.70-6.10); Red Cell Dist. Width 16.2 % (11.5-14.5)
[2023-08-17 07:41] LABS: INR 4.01; PT 39.8 Sec (11.4-14.6)
[2023-08-17] MEDS: TYLENOL 1000 MG PO (08:00)
[2023-08-17] MEDS: COREG 12.5 MG PO (08:00)
[2023-08-17] MEDS: ATIVAN 1 MG PO (08:00)
[2023-08-17 08:01] LABS: Blood Urea Nitrogen 43 mg/dl (9-20); Calcium 8.9 mg/dl (8.4-10.2); Carbon Dioxide 23 mmol/L (22-30); Chloride 106 mmol/L (98-107); Estimated Creatinine Clearance 84 ml/min; Glucose 179 mg/dl (70-99); Potassium 4.1 mmol/L (3.5-5.1); Sodium 135 mmol/L (135-145); eGFR > 60.00
--- NOTE | 2023-08-17 08:29 | W.PN.HOSP.TC ---
Addendum entered and electronically signed by Reggie Doe MD 08/18/23 13:04:
#Acute kidney injury
Resolved with IVFs
Original Note:
Today's Communication/Plan
-
Discharge to nursing facility with hospice today
Assessment / Plan
Assessment / Plan
88-year-old male had a fall and sustained mildly displaced left inferior pubic ramus fracture
#Dysphagia, currently on regular diet
VSE 08/14 shows aspiration
Discussed with patient's on 08/14, who understands the risks, and wishes to proceed with a regular diet and thin liquids
Nursing facility will not accept unless patient is signed onto hospice
Hospice nurse met with on 08/15, who agrees to hospice
Discharge to nursing facility with hospice today
# Mildly displaced left inferior pubic ramus fracture
No hypotension. No open wound. Stable hemoglobin.
No loss of consciousness or head trauma
Imaging studies showed no acute findings in the head or cervical area
Seen by orthopedic, recommend nonoperative treatment, weight bearing status as tolerated.
#Chronic atrial fibrillation
Borderline tachycardic, increase Coreg to 12.5 mg twice a day
Hold Coumadin, INR 4.0
#Peripheral artery disease
Status post 3 left toes amputation.
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 Jarrett in May 2022
#Type 2 diabetes
Patient would like regular diet
Chronic HFrEF with biventricular ICD
Continue Lasix, Coreg
History of CVA
-Continue statin
-Hold Coumadin INR 4.0
Bipolar disorder
Mood is cooperative
-Continue Ativan, trazodone
BPH
-Continue finasteride, tamsulosin, oxybutynin
Gastroesophageal reflux disease
-Continue PPI
DVT prophylaxis�Hold Coumadin INR 4.0
DNR/DNI, confirmed with patient and his
Physical Exam
General: Appears chronically debilitated, no Apparent Distress and Comfortable
HEENT: Moist mucous membranes and Atraumatic
Respiratory: Clear
Cardiac: S1/S2
GI: Soft and Non Tender
Rectal: No Maroon Stools
Genito-urinary: No costovertebral tender; No Valencia
Musculoskeletal: No Cyanosis
Skin: Warm and Dry
Neuro: AO x 3; No Slurred Speech, Facial Droop or Tremors. Stiffness noted
Psych: Calm and Intact Judgment/Insight
Anticipated Discharge: Today
Subjective/Interval History
-
Date of Service: August 17, 2023
No acute events. Patient tolerating his diet. No fever, no vomiting.
Objective Data
-
Labs:
Laboratory Results
08/17/23
06:30
WBC 9.0
Hgb 11.3 L
Hct 33.7 L
Plt Count 159 D
PT 39.8 H
INR 4.01
Sodium 135
Potassium 4.1
Chloride 106
Carbon Dioxide 23
BUN 43 H
Creatinine 0.7
Glucose 179 H
Calcium 8.9
Vital Signs:
Vital Signs
Temp Pulse Resp BP Pulse Ox
98.3 F 90 18 134/64 96
08/17/23 07:22 08/17/23 08:00 08/17/23 07:22 08/17/23 08:00 08/17/23 07:22
I&O
08/16/23 08/17/23 08/18/23
06:59 06:59 06:59
Intake Total 720 / 720 2310 / 2310
Output Total 900 / 900 1300 / 1300
Balance -180 / -180 1010 / 1010
--- NOTE | 2023-08-17 10:50 | CM ---
Patient has been accepted at [facility] today, plan is this afternoon [employer] by ambulance.
[facility]
Report [phone]
--- NOTE | 2023-08-17 12:23 | W.DCSUMMARY ---
Discharge Summary
Discharge Data
Date of Admission: 08/12/23
Date of Discharge: 08/17/23
-
Pending Results: No
Hospital Course
Discharge diagnosis:
Dysphagia with silent aspiration
Mildly displaced left inferior pubic rami fracture
Mechanical fall
Chronic atrial fibrillation on Coumadin
Coumadin coagulopathy
Peripheral artery disease
Type 2 diabetes
Chronic heart failure with reduced ejection fraction
History of stroke
Bipolar disorder
Benign prostatic hypertrophy
Gastroesophageal reflux disease
Consults: Orthopedic surgery
Hip XR:
Intact left hip arthroplasty. Mildly displaced left inferior pubic ramus fracture. Diffuse demineralization. Mild degenerative changes of the pubis symphysis, right hip, bilateral sacroiliac joints and partially visualized lower lumbar spine.
Vascular calcifications present.
Hospital course:
88-year-old male with a past medical history of PAD, CHF, CVA, BPH, chronic atrial fibrillation on Coumadin, bipolar disorder, and gastroesophageal reflux disease was admitted for a mildly displaced left inferior pubic rami fracture secondary to
mechanical fall. Patient was seen in conjunction with orthopedic surgery, who recommends conservative management with pain control, PT.
Patient has a history of chronic atrial fibrillation, and his rate was rapid at times. His Coreg was increased from 3.125 mg twice a day to 12.5 mg twice a day.
Patient's hospital course was complicated by a supratherapeutic INR. His Coumadin was held. His INR is 4.0 on the day of discharge. His INR needs to be monitored daily. Once his INR is less than 3.0, he can resume Coumadin 2 mg daily. This dose
is decreased from his previous dose.
Patient has a history of dysphagia, and eats a regular diet at home. He was seen by the speech pathologist, VSE shows silent aspiration. Goals of care conversation was held with patient's . Patient's understands the risks and
complications of aspiration, and wishes to proceed with feeding her a regular diet with thin liquids.
Patient's health is deteriorating. Patient's family is interested in hospice. He was seen in conjunction with the hospice nurse. He is discharged to residential facility with hospice.
Disposition: longterm facility with hospice
Discharge planning: Required 45 minutes
Discharge Plan
-
Patient Disposition: Halfway/SNF
Discharge Diagnosis/Procedures: Dysphagia with silent aspiration, mildly displaced left inferior pubic ramus fracture, chronic atrial fibrillation, supratherapeutic INR, peripheral artery disease, type 2 diabetes, history of heart failure
Condition: Fair
Diet: Regular
Blood Work: INR daily
Other Services: Hospice
Activity Restrictions/Additional Instructions:
Patient needs his INR checked daily. Once INR is <3, can start coumadin 2 mg daily.
Patient and family understands he is silently aspirating. They understand the risks, and wished to proceed with a regular diet and thin liquids.
Referrals:
Arsenio Smith MD [Family Provider] - in one week
Prescriptions:
New
carvedilol 12.5 mg Tablet
12.5 mg PO BID Qty: 60 0RF
acetaminophen [Tylenol Extra Strength] 500 mg Tablet
1,000 mg PO TID Qty: 0 0RF
oxycodone 5 mg Tablet
5 mg PO Q6HPRN PRN (Reason: mod to severe pain) Qty: 3 0RF
Continued
omeprazole 20 MG capsule,delayed release(DR/EC)
20 mg PO DAILY
oxybutynin chloride 5 MG tablet
10 mg PO QPM
finasteride 5 MG tablet
5 mg PO QPM
trazodone 50 mg Tablet
50 mg PO HS
atorvastatin [Lipitor] 10 mg Tablet
10 mg PO QPM
loperamide 2 mg Tablet
2 mg PO Q4HPRN PRN (Reason: DIARRHEA)
tamsulosin [Flomax] 0.4 mg Capsule
0.4 mg PO HS
therapeutic multivitamin Tablet
1 tab PO DAILY
lorazepam 1 mg Tablet
1 mg PO BID Qty: 6 0RF
Discontinued
warfarin 5 mg tablet
5 mg PO SUMOTUWEFRSA@1900
warfarin 7.5 mg Tablet
7.5 mg PO TH@1900
carvedilol [Coreg] 3.125 mg Tablet
3.125 mg PO BID
acetaminophen [Tylenol Arthritis Pain] 650 mg Tablet Extended Release
1,300 mg PO DAILY
furosemide [Lasix] 20 mg Tablet
20 mg PO Q48H
Discharge Orders:
Discharge Patient (As Directed); Ordered 08/17/23
Ordered By: Reggie Doe
Discharge Date and Time
Discharge Date/Time: 08/17/23 14:42
Print Language: SETSWANA
[2023-08-17] MEDS: NSS IV (12:33)
[2023-08-17 14:22] VITALS: BP 117/70
--- NOTE | 2023-08-17 15:11 | PN.CDI ---
CDI
- -
CDI:
Physician Documentation Request
Admit Date: 08/12/23 14:46
Dear Doctor Do,
Please review the following and provide your response in the progress notes.
Clinical Indicators:
Pt admitted with Fracture left pelvis
Renal functions are as below / Pt did get IVFs
08/15/23 08/16/23 08/17/23
05:54 05:32 06:30
Creatinine 1.1 1.0 0.7
Clarify which of the following accurately represents the patient's renal status:
DEBORA
Insignificant lab finding
Other ( Please specify)
Criteria for DEBORA*
1 Increase in serum creatinine by > or = to 0.3 mg/dL (> or = to 26.5 micromol/L) within 48 hours, OR
2 Increase in serum creatinine to > or = to 1.5 times baseline, which is known or presumed to have occurred within 7 days, OR
3 Urine volume < 0.5 nL/kg/hour for six hours
Use of terms such as suspected, likely, concern for, or probable (associated with a specific diagnosis that is being evaluated, monitored, or treated as if it exists) are acceptable and can be coded in the inpatient setting, when documented at the
time of discharge.
Thank you,
Jayshree Christianson RN
CDI Specialist
[employer]
Please use your independent medical judgment in providing your response.
*Source: Kidney Disease: Improving Global Outcomes (KDIGO) 2012
== END 2023-08-17 14:42 | DRG 536 ==
LOC: 4 WEST ACU 14:46
PROVIDERS: ADMITTING PHYSICIAN Internal Medicine; ATTENDING PHYSICIAN Family Medicine; CONSULT PHYSICIAN Orthopaedic Surgery; EMERGENCY PHYSICIAN Emergency Medicine; FAMILY PHYSICIAN Family Medicine
DX: S32.592A Other specified fracture of left pubis, initial encounter for closed fracture (principal); I48.20 Chronic atrial fibrillation, unspecified; I50.22 Chronic systolic (congestive) heart failure; N17.9 Acute kidney failure, unspecified; Z79.01 Long term (current) use of anticoagulants; I73.9 Peripheral vascular disease, unspecified; E11.8 Type 2 diabetes mellitus with unspecified complications; F31.9 Bipolar disorder, unspecified; K21.9 Gastro-esophageal reflux disease without esophagitis; Z66 Do not resuscitate; W19.XXXA Unspecified fall, initial encounter
CPT/HCPCS: 70450; 72125; 73090; 73502; 74230; 80048; 80053; 82962; 83735; 85025; 85027; 85610; 86850; 86900; 86901; 92526; 92610; 92611; 93005; 96374; 97167; 97530; 97535; 99285